=== PATIENT | female | born 1990 | race Caucasian/White ===

== ENCOUNTER 2018-06-24 13:03 | Emergency (ER) | payer OTHER, SELFPAY ==
[2018-06-24 13:05] VITALS: BP 108/50; PULSE 95; RESP 14; TEMP 36.9; O2SAT 100; BMI 25.0
[2018-06-24 13:43] LABS: Bacteria Urine Moderate (10-30); Culture Indicated Urine Specimen Cultured; RBC Urine 0-1/HPF (0-5/HPF); Squamous Epithelial Cell Urine 5-10 /HPF; WBC Urine 10-30/HPF (0-5/HPF)
--- NOTE | 2018-06-24 14:19 | PC.NURSE ---
Pt is 4 weeks . Conceived with fertility treatment. Has right burning flank pain since yesterday, worsened today. Also has intermittent RLQ abdominal pain. Denies vaginal bleeding, dysuria, frequency, or hematuria. States has had a kidney stone in past, but that pain was much worse, than today. Also has hx of UTI, which she states feels different than today as well. Denies fever/chills. Pain is 5/10. Denies need for pain medication.
[2018-06-24 14:42] VITALS: BP 109/64; PULSE 97; RESP 15; O2SAT 98
--- NOTE | 2018-06-24 15:06 | DI.US.S_ITS ---
PROCEDURE: US ABDOMEN COMPLETE INDICATIONS: PAIN TECHNIQUE: Real-time scanning was performed of the abdominal and retroperitoneal organs, with image documentation. COMPARISON: None. FINDINGS: Liver: Liver is normal in size and homogeneous in echotexture. Gallbladder: The gallbladder wall measures 2.2 mm in diameter. No stones, sludge, pericholecystic fluid, or sonographic Lackey sign. Biliary ducts: Intrahepatic bile ducts are non-dilated. Extrahepatic bile duct caliber measures 4.7 mm. Normal is 6-7 mm or less in diameter, or 10 mm or less post-cholecystectomy. Pancreas: Visualized portions of the pancreas are sonographically normal. Spleen: Spleen is normal in size and homogeneous in echotexture. Kidneys: Kidneys are normal in size and echotexture. Right kidney measures 10.3 cm long; left kidney measures 9.6 cm long. No hydronephrosis or nephrolithiasis. No solid masses. Aorta: Visualized aorta is normal in caliber at less than 3 cm. Iliacs: Proximal common iliac arteries are normal in caliber at less than 2.5 cm. IVC: Intrahepatic inferior vena cava is patent. Miscellaneous: No free abdominal fluid. IMPRESSION: 1. No cholelithiasis or findings to suggest choledocholithiasis or acute cholecystitis. Dictated by: Laya Jenkins M.D. on 06/24/2018 at 17:09 Approved by: Laya Jenkins M.D. on 06/24/2018 at 17:16
--- NOTE | 2018-06-24 15:07 | DI.US.S_ITS ---
PROCEDURE: US PELVIC COMPLETE INDICATIONS: PAIN; HISTORY ECTOPIC TECHNIQUE: Real-time scanning was performed of the pelvic organs, with image documentation. Additional endovaginal scanning was necessary due to incomplete visualization of the adnexal and endometrial structures by transabdominal scanning. COMPARISON: None. FINDINGS: Transabdominal scanning: Limited scanning through the kidneys shows no hydronephrosis. No pathologic free abdominal or pelvic fluid. Endovaginal scanning: Uterus: Uterus is normal in size at 9.3 x 5.1 x 6.6 cm. The endometrium measures 16.3 mm in combined thickness. No intrauterine gestation is visualized. Ovaries: The right ovary measures 3.8 x 1.3 x 1.4 cm. The left ovary measures 2.3 x 2.2 x 3.4 cm. There is trace fluid within the cul-de-sac. IMPRESSION: 1. No intrauterine gestation visualized. Please correlate with beta-hCG. 2. Unremarkable sonographic appearance of the ovaries; however in the presence of a rising beta hCG, ectopic could be considered in the differential diagnosis. Dictated by: Laya Jenkins M.D. on 06/24/2018 at 17:16 Approved by: Laya Jenkins M.D. on 06/24/2018 at 17:17
[2018-06-24 15:38] LABS: Add Manual Diff / Slide Review NO; Basophils Percent Auto 0.8 % (0-2); Eosinophils Percent Auto 0.9 % (2-4); Hematocrit 40.8 % (36-46); Hemoglobin 14.1 g/dL (12.0-16.0); Lymphocytes Percent Auto 22.4 % (25-40); Mean Corpuscular HGB Conc 34.6 % (30-36); Mean Corpuscular Hemoglobin 30.4 PG (26-34); Mean Corpuscular Volume 87.8 fL (80-100); Monocytes Percent Auto 5.5 % (3-14); Neutrophils Absolute Auto 5300 /uL (3000-5900); Neutrophils Percent Auto 70.4 % (50-75); Platelet Count 168 X10^3/uL (150-400); Red Blood Cell Count 4.65 X10^6/uL (4.0-5.2); Red Cell Distribution Width 12.9 % (11.6-14.8); White Blood Cell Count 7.5 X10^3/uL (4.5-11.0)
[2018-06-24] MEDS: SODIUM CHLORIDE 0.9% 1,000 ML 1000 ML IV (15:40)
[2018-06-24] MEDS: ONDANSETRON 4 MG/2 ML INJ IV (15:40)
[2018-06-24 15:50] LABS: Alanine Aminotransferase 23 IU/L (9-52); Albumin 4.8 g/dL (3.5-5.0); Albumin Globulin Ratio 1.5 (1.0-2.8); Alkaline Phosphatase 53 U/L (38-126); Aspartate Aminotransferase 22 IU/L (14-36); Bilirubin Total 0.5 mg/dL (0.2-1.3); Blood Urea Nitrogen 9 mg/dL (7-17); Calcium 9.8 mg/dL (8.4-10.2); Carbon Dioxide 24 mmol/L (22-32); Chloride 105 mmol/L (98-107); Estimated Glomerular Filt Rate > 60.0 mL/min (>60); Globulin 3.1 g/dL (1.7-4.1); Glucose 89 mg/dL (70-100); Potassium 4.4 mmol/L (3.4-5.1); Sodium 141 mmol/L (137-145); Total Protein 7.9 g/dL (6.3-8.2)
[2018-06-24 15:58] LABS: HEMOLYSIS 74 (0-50)
[2018-06-24 16:07] LABS: HCG Quantitative /Beta subunit 479.84 mIU/mL
[2018-06-24 16:36] VITALS: BP 104/76; PULSE 97; RESP 15; O2SAT 99
--- NOTE | 2018-06-24 16:37 | ED_ITS ---
HPI - General Chief complaint: Urogenital-Female Stated complaint: 4 WEEKS PREG. HAVING SIDE/BACK PAIN Time Seen by Provider: 06/24/18 14:08 Source: patient Mode of arrival: ambulatory Limitations: no limitations History of Present Illness HPI Narrative: Patient is a 28-year-old female who presents with right flank pain and some right quadrant pain. He said it started yesterday. Nonradiating. She knows she is about 4-5 weeks. She had IUI 18 days ago. She has been trying to conceive. She does have a history of old left ectopic which was treated with medications. She denies any fever or chills she does feel mildly nauseated. She denies any vaginal discharge or any vaginal bleeding Patient : Yes Related Data Previous Rx's Medication Instructions Recorded amoxicillin 500 mg PO TID 7 Days #21 cap 06/24/18 ondansetron [Zofran ODT] 4 mg PO Q6-8H PRN #20 tab 06/24/18 Allergies Allergy/AdvReac Type Severity Reaction Status Date / Time No Known Drug Allergies Allergy Verified 06/24/18 13:09 Review of Systems Review of Systems All systems reviewed & are unremarkable except as noted in HPI and below Constitutional Denies chills, Denies fever(s), Denies lethargy and Denies weakness Cardiovascular Denies chest pain, Denies irregular heart rhythm, Denies lightheadedness, Denies palpitations, Denies dyspnea, Denies dyspnea on exertion and Denies orthopnea Respiratory Denies cough, Denies dyspnea, Denies dyspnea on exertion and Denies wheezing Gastrointestinal Gastrointestinal: Denies diarrhea and Reports nausea Genitourinary Reports as per HPI Musculoskeletal Denies back pain, Denies muscle weakness, Denies numbness and Denies tingling Integumentary/Breasts Denies pruritus, Denies erythema, Denies rash and Denies wounds Neurologic Denies numbness, Denies tingling and Denies weakness Endocrine Denies palpitations Allergic/Immunologic Denies wheezing PMFSH - Past Medical History Left ectopic Surgical history: Reports no surgical history Patient : Yes Exam Initial Vital Signs Initial Vital Signs: Vital Signs Temperature 98.4 F 06/24/18 13:05 Pulse Rate 95 H 06/24/18 13:05 Respiratory Rate 14 06/24/18 13:05 Blood Pressure 108/50 L 06/24/18 13:05 Pulse Oximetry 100 06/24/18 13:05 GENERAL: Well-appearing, well-nourished and in no acute distress. HEENT: Head atraumatic,EOMI, pupils reactive, neck is supple CARDIOVASCULAR: Regular rate and rhythm without murmurs, rubs or gallops. RESPIRATORY: Breath sounds equal bilaterally, no wheezes rales or rhonchi. ABDOMEN: Soft, minimal right lower quadrant tenderness without guarding or rebound no lower suprapubic pain : Mild right CVA tenderness EXTREMITIES: Normal range of motion, no clubbing or edema. Neurovascularly intact NEUROLOGICAL: Alert and oriented x4.Normal gait and speech. SKIN: Warm, dry, no laceration, no petechiae, no rashes or lesions. Course Orders Ordered: ED Orders 06/24/18 13:25 Urine Culture Stat Urine Microscopic Stat 06/24/18 15:06 US abdomen complete Stat 06/24/18 15:07 US pelvic complete Stat 06/24/18 15:21 ABO RH Type Stat Complete Blood Count AUTO DIFF Stat Comprehensive Metabolic Panel Stat HCG Quantitative Stat Discontinued Medications Sodium Chloride (Normal Saline 0.9%) 1,000 mls @ 1,000 mls/hr IV BOLUS ONE Stop: 06/24/18 16:05 Last Infusion: 06/24/18 17:21 Dose: 0 mls/hr Admin: 06/24/18 15:40 Dose: 1,000 mls/hr Ceftriaxone Sodium/Dextrose (Rocephin) 1 gm in 50 mls @ 100 mls/hr IV NOW ONE Stop: 06/24/18 17:06 Last Infusion: 06/24/18 17:32 Dose: 0 mls/hr Admin: 06/24/18 16:57 Dose: 100 mls/hr Ondansetron HCl (Zofran) 4 mg IV NOW ONE Stop: 06/24/18 15:40 Last Admin: 06/24/18 15:40 Dose: 4 mg Vital Signs - 8 hr 06/24/18 13:05 06/24/18 14:42 06/24/18 16:36 Temperature 98.4 F Pulse Rate 95 H 97 H 97 H Respiratory Rate 14 15 15 Blood Pressure 108/50 L Blood Pressure [Left Arm] 109/64 104/76 Pulse Oximetry 100 98 99 06/24/18 17:00 Temperature Pulse Rate 97 H Respiratory Rate 16 Blood Pressure Blood Pressure [Left Arm] 101/56 L Pulse Oximetry 99 MDM - OB/Uterine Contractions Medical Records Attestation: I reviewed the patient's medical records. Lab Data Attestation: I reviewed the patient's lab results. Result diagrams: 06/24/18 15:21 06/24/18 15:21 Lab Results 06/24/18 06/24/18 06/24/18 Range/Units 13:25 15:21 15:21 WBC 7.5 (4.5-11.0) X10^3/uL RBC 4.65 (4.0-5.2) X10^6/uL Hgb 14.1 (12.0-16.0) g/dL Hct 40.8 (36-46) % MCV 87.8 (80-100) fL MCH 30.4 (26-34) PG MCHC 34.6 (30-36) % RDW 12.9 (11.6-14.8) % Plt Count 168 (150-400) X10^3/uL Neut % (Auto) 70.4 (50-75) % Lymph % (Auto) 22.4 L (25-40) % [place] % (Auto) 5.5 (3-14) % Eos % (Auto) 0.9 L (2-4) % Baso % (Auto) 0.8 (0-2) % Neut # (Auto) 5300 (2940-9825) /uL Sodium 141 (137-145) mmol/L Potassium 4.4 (3.4-5.1) mmol/L Chloride 105 (98-107) mmol/L Carbon Dioxide 24 (22-32) mmol/L BUN 9 (7-17) mg/dL Creatinine 0.50 L (0.52-1.04) mg/dL Estimated GFR > 60.0 (>60) mL/min BUN/Creatinine Ratio 18.0 (6-22) Glucose 89 (70-100) mg/dL Calcium 9.8 (8.4-10.2) mg/dL Total Bilirubin 0.5 (0.2-1.3) mg/dL AST 22 (14-36) IU/L ALT 23 (9-52) IU/L Alkaline Phosphatase 53 (38-126) U/L Total Protein 7.9 (6.3-8.2) g/dL Albumin 4.8 (3.5-5.0) g/dL Globulin 3.1 (1.7-4.1) g/dL Albumin/Globulin Ratio 1.5 (1.0-2.8) HCG, Quant 479.84 mIU/mL Urine RBC 0-1/hpf (0-5/HPF) Urine WBC 10-30/hpf H (0-5/HPF) Ur Squamous Epith Cells 5-10 /hpf H Urine Bacteria Moderate (10-30) H (None) Ur Culture Indicated? Specimen cultured Micro UA Comment Not Reportable Blood Type 06/24/18 Range/Units 15:21 WBC (4.5-11.0) X10^3/uL RBC (4.0-5.2) X10^6/uL Hgb (12.0-16.0) g/dL Hct (36-46) % MCV (80-100) fL MCH (26-34) PG MCHC (30-36) % RDW (11.6-14.8) % Plt Count (150-400) X10^3/uL Neut % (Auto) (50-75) % Lymph % (Auto) (25-40) % [place] % (Auto) (3-14) % Eos % (Auto) (2-4) % Baso % (Auto) (0-2) % Neut # (Auto) (2917-8431) /uL Sodium (137-145) mmol/L Potassium (3.4-5.1) mmol/L Chloride (98-107) mmol/L Carbon Dioxide (22-32) mmol/L BUN (7-17) mg/dL Creatinine (0.52-1.04) mg/dL Estimated GFR (>60) mL/min BUN/Creatinine Ratio (6-22) Glucose (70-100) mg/dL Calcium (8.4-10.2) mg/dL Total Bilirubin (0.2-1.3) mg/dL AST (14-36) IU/L ALT (9-52) IU/L Alkaline Phosphatase (38-126) U/L Total Protein (6.3-8.2) g/dL Albumin (3.5-5.0) g/dL Globulin (1.7-4.1) g/dL Albumin/Globulin Ratio (1.0-2.8) HCG, Quant mIU/mL Urine RBC (0-5/HPF) Urine WBC (0-5/HPF) Ur Squamous Epith Cells Urine Bacteria (None) Ur Culture Indicated? Micro UA Comment Blood Type A Positive Urine Dip Bedside Urine Glucose Negative Bedside Urine Bilirubin - Negative Bedside Urine Ketone - Negative Urine Specific [place] 1.015 Bedside Urine Occult Blood - Negative Bedside Urine pH 6.5 Bedside Urine Protein - Negative Bedside Urine Urobilinogen - Negative Bedside Urine Nitrite - Negative Bedside Urine Leukocytes +++ 500 Esterase Imaging Data US - abdomen: Radiologist's impression: PROCEDURE: US ABDOMEN COMPLETE INDICATIONS: PAIN TECHNIQUE: Real-time scanning was performed of the abdominal and retroperitoneal organs, with image documentation. COMPARISON: None. FINDINGS: Liver: Liver is normal in size and homogeneous in echotexture. Gallbladder: The gallbladder wall measures 2.2 mm in diameter. No stones, sludge , pericholecystic fluid, or sonographic Lackey sign. Biliary ducts: Intrahepatic bile ducts are non-dilated. Extrahepatic bile duct caliber measures 4.7 mm. Normal is 6-7 mm or less in diameter, or 10 mm or less post-cholecystectomy. Pancreas: Visualized portions of the pancreas are sonographically normal. Spleen: Spleen is normal in size and homogeneous in echotexture. Kidneys: Kidneys are normal in size and echotexture. Right kidney measures 10.3 cm long; left kidney measures 9.6 cm long. No hydronephrosis or nephrolithiasis. No solid masses. Aorta: Visualized aorta is normal in caliber at less than 3 cm. Iliacs: Proximal common iliac arteries are normal in caliber at less than 2.5 cm. IVC: Intrahepatic inferior vena cava is patent. Miscellaneous: No free abdominal fluid. IMPRESSION: 1. No cholelithiasis or findings to suggest choledocholithiasis or acute cholecystitis. Dictated by: Laya Jenkins M.D. on 06/24/2018 at 17:09 OB US: Radiologist's impression: PROCEDURE: US PELVIC COMPLETE INDICATIONS: PAIN; HISTORY ECTOPIC TECHNIQUE: Real-time scanning was performed of the pelvic organs, with image documentation. Additional endovaginal scanning was necessary due to incomplete visualization of the adnexal and endometrial structures by transabdominal scanning. COMPARISON: None. FINDINGS: Transabdominal scanning: Limited scanning through the kidneys shows no hydronephrosis. No pathologic free abdominal or pelvic fluid. Endovaginal scanning: Uterus: Uterus is normal in size at 9.3 x 5.1 x 6.6 cm. The endometrium measures 16.3 mm in combined thickness. No intrauterine gestation is visualized. Ovaries: The right ovary measures 3.8 x 1.3 x 1.4 cm. The left ovary measures 2.3 x 2.2 x 3.4 cm. There is trace fluid within the cul-de-sac. IMPRESSION: 1. No intrauterine gestation visualized. Please correlate with beta-hCG. 2. Unremarkable sonographic appearance of the ovaries; however in the presence of a rising beta hCG, ectopic could be considered in the differential diagnosis. Dictated by: Laya Jenkins M.D. on 06/24/2018 at 17:16 MDM Narrative Medical decision making narrative: The patient has an increasing HCG previously in the 100 today 479. Still very early in ultrasound is not definitively rule out ectopic however she is more tender in her all right flank area with obvious leukocytes in her urine. Ultrasound of the abdomen did not reveal any sign or free fluid in the pelvis area or signs of appendicitis. Will treat for pyelonephritis Discharge Plan Departure Patient Disposition: Home Clinical Impression: UTI (urinary tract infection) Instructions: DI for Kidney Infection Activity Restrictions/Additional Instructions: FOH=[id number] *You have been diagnosed with kidney infection *What to do: Increase fluid intake, take Tylenol as needed as directed for pain *Continue to take medications as directed Zofran 4 mg every 6 hr if needed for nausea or vomiting Amoxicillin 500 mg 3 times a day for 1 week *Follow up with your primary care provider in 2-3 days *Return to ER if you should have fever, increasing pain or any new, worsening or concerning symptoms Prescriptions: New amoxicillin 500 mg capsule 500 mg PO TID 7 Days Qty: 21 RF: 0 ondansetron [Zofran ODT] 4 mg tablet,disintegrating 4 mg PO Q6-8H PRN (Reason: nausea and vomiting) Qty: 20 RF: 0
[2018-06-24] MEDS: CEFTRIAXONE 1 GM/50 ML FROZ.PIGGY IV (16:57)
[2018-06-24 17:00] VITALS: BP 101/56; PULSE 97; RESP 16; O2SAT 99
== END 2018-06-24 17:59 | disposition home or self-care (01) ==
PROVIDERS: Internal Medicine; Emergency Provider Emergency Medicine
DX: N39.0 Urinary tract infection, site not specified (principal)
CPT/HCPCS: 76700; 76830; 76856; 80053; 81003; 81015; 84702; 85025; 86900; 86901; 87077; 87086; 87186; 96361; 96365; 96375; 99283; 99284; J2405